=== PATIENT | male | born 2000 | race Caucasian/White ===

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

== ENCOUNTER → 2021-01-02 | Outpatient (CLI) | payer BC | LOC: LABNPT 08:58 | PROVIDERS: ATTEND Otolaryngology Otolaryngology/Facial Plastic Surgery | DX: G47.33 Obstructive sleep apnea (adult) (pediatric) (principal); Z20.822 Contact with and (suspected) exposure to COVID-19 | CPT/HCPCS: 87635 ==

== ENCOUNTER → 2021-01-04 | Outpatient (CLI) | payer BC ==
[2021-01-05 15:43] LABS: AMPHETAMINE SCREEN, URINE NEGATIVE (NEGATIVE); BARBITURATE SCREEN URINE NEGATIVE (NEGATIVE); BENZODIAZEPINES SCREEN URINE NEGATIVE (NEGATIVE); CANNABINOID SCREEN, URINE POSITIVE (NEGATIVE); COCAINE SCREEN URINE NEGATIVE (NEGATIVE); METHADONE STAT NEGATIVE (NEGATIVE); METHAMPHETAMINE SCREEN URINE S NEGATIVE (NEGATIVE); OPIATE SCREEN URINE NEGATIVE (NEGATIVE); OXYCODONE STAT NEGATIVE (NEGATIVE); PROPOXYPHENE STAT NEGATIVE (NEGATIVE); TRICYCLIC ANTIDEPRESSANTS SCRE NEGATIVE (NEGATIVE)
== END ==
LOC: SLEEP 20:31
PROVIDERS: ATTEND Nurse Practitioner
DX: G47.33 Obstructive sleep apnea (adult) (pediatric) (principal)
CPT/HCPCS: 95810

== ENCOUNTER 2021-01-29 18:34 | Emergency (ER) | payer OTHER, BC ==
[~2021-01-29] VITALS: Ht 182.9 cm; Wt 74.8 kg
[2021-01-29 18:40] VITALS: BP 136/76
--- NOTE | 2021-01-29 18:57 | ED Lower Extremity ---
General Chief Complaint: Lower Extremity Stated Complaint: R FOOT INJ History of Present Illness Date Seen by Provider: January 29, 2021 Time Seen by Provider: 18:45 Initial Comments Patient is a 20-year-old male who presents to the emergency department today with a chief complaint of right foot injury. Patient was working at [employer] when he had a grouping of about 5 boards fall onto the top of his right foot. He had immediate pain. He is able to bear weight with some degree of discomfort. Denies any other complaints of illness or injury. Unknown last tetanus shot. All other review of systems reviewed and negative except as stated. Onset: just prior to arrival Pain/Injury Location: right foot Method of Injury: other (Boards fell on foot) Allergies and Home Medications Allergies Coded Allergies: Penicillins (Verified Allergy, Unknown, 01/29/21) Patient Home Medication List Home Medication List Reviewed: Yes Review of Systems Constitutional: see HPI EENTM: no symptoms reported Respiratory: no symptoms reported Cardiovascular: no symptoms reported Gastrointestinal: no symptoms reported Genitourinary: no symptoms reported Musculoskeletal: joint pain (top of right foot) Skin: other (abrasion) Psychiatric/Neurological: No Symptoms Reported All Other Systems Reviewed Negative Unless Noted: Yes Physical Exam Vital Signs Capillary Refill : Height, Weight, BMI Height: '" Weight: lbs. oz. kg; BMI Method: General Appearance: WD/WN, no apparent distress Neck: full range of motion Cardiovascular: regular rate, rhythm Respiratory: no respiratory distress, no accessory muscle use Hips: bilateral hip non-tender, bilateral hip normal inspection, bilateral hip normal range of motion, bilateral hip no evidence of injury Legs: bilateral leg non-tender, bilateral leg normal inspection, bilateral leg normal range of motion, bilateral leg no evidence of injury Knees: bilateral knee non-tender, bilateral knee normal inspection, bilateral knee normal range of motion, bilateral knee no evidence of injury Ankles: bilateral ankle non-tender, bilateral ankle normal inspection, bilateral ankle normal range of motion, bilateral ankle no evidence of injury Feet: right foot pain, right foot soft tissue tenderness, right foot swelling, right foot other (abrasion to top of right foot) Neurologic/Tendon: normal sensation, normal motor functions Neurologic/Psychiatric: alert, normal mood/affect, oriented x 3 Skin: normal color, warm/dry, other (abrasion top of right foot) Progress/Results/Core Measures Results/Orders My Orders Orders - MAGDIEL LAN MD Foot, Right, 3 View (01/29/21 18:59) Dipht,Pertuss(Acell),Tet Adult (Boostrix (01/29/21 19:15) Medications Given in ED Current Medications Medications Dose Ordered Sig/Catherine Route Start Time Stop Time Status Last Admin Dose Admin Diphtheria/ Tetanus/Acell Pertussis 0.5 ml ONCE ONCE IM 01/29/21 19:15 01/29/21 19:16 DC 01/29/21 19:19 0.5 ML Progress Progress Note : Time: 21:38 Progress Note Patient is a 20-year-old male who is seen and examined today for contusion of the right foot with an associated abrasion. Evaluation today includes a physical exam as well as 3 views of the right foot. Patient has evidence of old fracture to the base of the proximal first phalanx. There is no associated tenderness at this area on examination today. Otherwise bony structures of the foot are unremarkable. Patient will return to work with no restrictions. Advised ice and ibuprofen as needed for discomfort. Patient verbalized understanding. All questions are sought and answered. Patient is stable for [facility]. Diagnostic Imaging Diagonstic Imaging: Xray Plain Films/CT/US/NM/MRI: other (right foot) Comments [facility], [place] NAME: TOM DIAZ [facility] REC#: [id number] PT STATUS: REG ER : 2000 PHYSICIAN: MAGDIEL LAN MD ADMIT DATE: 01/29/21/ER Signed Date of Exam:01/29/21 FOOT, RIGHT, 3 VIEW EXAMINATION: FOOT, RIGHT, 3 VIEWS. INDICATION: Right foot pain. COMPARISON: None available. TECHNIQUE: Three non-weightbearing views of foot were obtained. FINDINGS: There is an age-indeterminate, minimally depressed fracture involving the basilar articular surface of the first proximal phalanx. The osteoarticular fracture appears depressed by approximately 2 mm. No additional fracture site is seen. IMPRESSION: 1. Age-indeterminate minimally depressed fracture involving the base of the great toe proximal phalanx. This results in mild articular surface incongruency. Correlation for focal tenderness in this region is advised. 2. Otherwise, there is no acute fracture within the right foot. Dictated by: Dictated on workstation # [id number] Dict: 01/29/211920 Trans: 01/29/211926 [facility] [id number] Interpreted by: KAE SIMMONS MD Electronically signed by: KAE SIMMONS MD 01/29/211926 Departure Impression Primary Impression: Contusion of right foot Qualified Codes: S90.31XA - Contusion of right foot, initial encounter Additional Impression: Abrasion, right foot, initial encounter Disposition: 01 HOME, SELF-CARE Condition: Stable Departure-Patient Inst. Referrals: JOSE ARMANDO BARKSDALE MD (PCP/Family) Primary Care Physician Patient Instructions: Contusion (DC), Skin Abrasions (DC) Add. Discharge Instructions: Take [id number] ibuprofen 3 pills which is 600 mg 3 times daily with food for pain. Do this no more than 5 days in a row. Use an ice pack on the swollen area of your foot to help reduce the swelling. Come back to the emergency department for any new, concerning or emergent symptoms. MAGDIEL LAN MD January 29, 2021 18:57
[2021-01-29] MEDS ORDERED: TETANUS,DIPTH,PERTUSS P/F (BOOSTRIX) 0.5 ML VIAL IM ONE (19:15)
--- NOTE | 2021-01-29 19:25 | Diagnostic Imaging Report ---
EXAMINATION: FOOT, RIGHT, 3 VIEWS. INDICATION: Right foot pain. COMPARISON: None available. TECHNIQUE: Three non-weightbearing views of foot were obtained. FINDINGS: There is an age-indeterminate, minimally depressed fracture involving the basilar articular surface of the first proximal phalanx. The osteoarticular fracture appears depressed by approximately 2 mm. No additional fracture site is seen. IMPRESSION: 1. Age-indeterminate minimally depressed fracture involving the base of the great toe proximal phalanx. This results in mild articular surface incongruency. Correlation for focal tenderness in this region is advised. 2. Otherwise, there is no acute fracture within the right foot. Dictated by: Dictated on workstation # [id number]
== END 2021-01-29 19:45 | disposition home or self-care (01) ==
LOC: EDUNIT# 18:34 → ER 18:36
DX: S90.31XA Contusion of right foot, initial encounter (principal); Z88.0 Allergy status to penicillin; Z23 Encounter for immunization; W20.8XXA Other cause of strike by thrown, projected or falling object, initial encounter
CPT/HCPCS: 73630; 90715

== ENCOUNTER → 2021-07-26 | Outpatient (CLI) | payer BC ==
--- NOTE | 2021-07-26 13:52 | Diagnostic Imaging Report ---
PROCEDURE: US Scrotum. TECHNIQUE: Multiple Real-time grayscale images were obtained over the scrotum in various projections bilaterally. INDICATION: Right testicular pain. FINDINGS: The right testicle measures approximately 3.3 x 4.3 cm. The left testicle measures 3 x 3.8 cm. Both testes are homogeneous in appearance with no solid or cystic mass seen. No abnormality of either epididymis is seen. There are small hydroceles present bilaterally. There are normal velocities and waveforms within the testes with no hyperemia or torsion demonstrated. There are small varicoceles present bilaterally. IMPRESSION: There are small hydroceles and varicoceles present with no other abnormality seen. Dictated by: Dictated on workstation # [id number]
== END ==
LOC: RAD 12:30
PROVIDERS: ATTEND Nurse Practitioner Family
DX: Z11.3 Encounter for screening for infections with a predominantly sexual mode of transmission (principal); N43.3 Hydrocele, unspecified; I86.1 Scrotal varices
CPT/HCPCS: 76870

== ENCOUNTER → 2021-08-13 | Outpatient (CLI) | payer BC ==
[~2021-08-13] MED LIST: GADOTERATE 0.5 MMOL/ML (CLARISCAN) 20 ML VIAL IV ONE
--- NOTE | 2021-08-13 14:43 | Diagnostic Imaging Report ---
PROCEDURE: MR imaging of the brain with and without contrast. TECHNIQUE: Multiplanar, multisequence MR imaging of the brain was performed with and without contrast. INDICATION: Chronic headaches. COMPARISON: 06/14/2017. FINDINGS: No acute ischemia, mass, or hemorrhage. No abnormal enhancement is seen. The ventricles, cortical sulci, and basilar cisterns are symmetric and unremarkable. The sellar and suprasellar regions have a normal appearance. The brainstem and posterior fossa are unremarkable. The paranasal sinuses and mastoid air cells demonstrate normal signal characteristics. The globes and orbits are symmetric and unremarkable. The scalp and calvarium have a normal appearance. IMPRESSION: 1. No acute ischemia, mass, or hemorrhage. No abnormal enhancement or focal signal abnormalities. Dictated by: Dictated on workstation # [id number]
== END ==
LOC: RAD 12:55
PROVIDERS: ATTEND Psychiatry & Neurology Neurology
DX: G44.51 Hemicrania continua (principal)
CPT/HCPCS: 70553